=== PATIENT | female | born 2000 | race Caucasian/White ===

== ENCOUNTER 2019-02-18 10:25 | Outpatient (CLI) | payer MEDICAID | END 2019-02-18 13:05 | disposition home or self-care (01) | LOC: OBT 10:25 → L-D 10:26 → OBT 13:05 | DX: O26.893 Other specified pregnancy related conditions, third trimester (principal); L29.9 Pruritus, unspecified; Z3A.36 36 weeks gestation of pregnancy | CPT/HCPCS: 76818 ==

== ENCOUNTER 2019-02-22 17:50 | Inpatient (IN) | payer MEDICAID ==
[2019-02-22 19:24] LABS: ADD MAN DIFF? NO
[2019-02-22 19:27] LABS: BASOPHILS % 0.2 % (0.0-2.0); EOSINOPHILS % 0.4 % (0.0-7.0); HEMATOCRIT 34.3 % (37.0-47.0); HEMOGLOBIN 11.6 g/dl (12.0-16.0); LYMPHOCYTES # 2.2 10^3/ul (0.8-2.9); LYMPHOCYTES % 19.7 % (18.0-55.0); MEAN CORPUSCULAR HEMOGLOBIN 29.8 pg (29.0-33.0); MEAN CORPUSCULAR HGB CONC 33.8 g/dl (32.0-37.0); MEAN CORPUSCULAR VOLUME 88.2 fl (72.0-104.0); MEAN PLATELET VOLUME 11.3 fl (7.4-10.4); MONOCYTE # 0.5 10^3/ul (0.3-0.9); MONOCYTES % 4.6 % (0.0-13.0); NEUTROPHIL # 8.1 10^3/ul (1.6-7.5); NEUTROPHILS % 74.2 % (30.0-74.0); PLATELET COUNT 189 10^3/UL (140-415); RED BLOOD COUNT 3.89 10^6/ul (4.20-5.40)
[2019-02-22 19:27] LABS: WHITE BLOOD COUNT 10.9 10^3/ul (4.8-10.8)
[2019-02-22 19:35] LABS: ADD UMIC YES; UR ASCORBIC ACID NEGATIVE (NEGATIVE); UR BACTERIA FEW /HPF (NONE SEEN); UR BILIRUBIN (Dip) NEGATIVE (NEGATIVE); UR BLOOD (Dip) NEGATIVE (NEGATIVE); UR CLARITY SLIGHTLY CLOUDY (CLEAR); UR COLOR YELLOW (YELLOW); UR GLUCOSE (Dip) NEGATIVE (NEGATIVE); UR KETONES (Dip) NEGATIVE (NEGATIVE); UR LEUKOCYTE ESTERASE (Dip) 1+ Leu/ul (NEGATIVE); UR MUCUS FEW /HPF (NONE SEEN); UR NITRITE (Dip) POSITIVE (NEGATIVE); UR RBC 0 /HPF (0-5); UR SPECIFIC GRAVITY (Dip) 1.027 (1.003-1.030); UR SQUAMOUS EPITHELIAL CELL MODERATE /HPF (FEW); UR TOTAL PROTEIN (Dip) NEGATIVE (NEGATIVE); UR UROBILINOGEN (Dip) 1+ mg/dL (NEGATIVE); UR WBC 47 /HPF (0-5)
[2019-02-22 19:45] LABS: ALANINE AMINOTRANSFERASE 22 IU/L (13-69); ALBUMIN 3.4 g/dl (3.3-4.9); ALBUMIN/GLOBULIN RATIO 1.17; ALKALINE PHOSPHATASE 210 IU/L (42-121); ANION GAP 8 (5-13); ASPARTATE AMINO TRANSFERASE 31 IU/L (15-46); BILIRUBIN,INDIRECT 0.4 mg/dl (0-1.1); BILIRUBIN,TOTAL 0.4 mg/dl (0.2-1.3); BLOOD UREA NITROGEN 12 mg/dl (7-20); CALCIUM 8.8 mg/dl (8.4-10.2); CARBON DIOXIDE 19 mmol/L (21-31); CHLORIDE 110 mmol/L (97-110); CREATININE 0.57 mg/dl (0.44-1.00); Estimated GFR > 60 mL/min (>60); GLUCOSE 72 mg/dl (70-220); POTASSIUM 3.8 mmol/L (3.5-5.1); SODIUM 137 mmol/L (135-144); TOTAL PROTEIN 6.3 g/dl (6.1-8.1); URIC ACID 5.9 mg/dl (3.1-7.9)
[2019-02-22 19:47] LABS: INR 0.95; PROTIME 12.8 Sec (11.9-14.9)
[2019-02-22 19:48] LABS: PARTIAL THROMBOPLASTIN TIME 27.7 Sec (23.0-35.0)
[2019-02-23] MEDS: URSODIOL 300 MG CAP PO ×4 (00:12→20:31)
[2019-02-23] MEDS: DIPHENHYDRAMINE 25 MG CAP PO ×2 (00:12→20:31)
[2019-02-23 23:39] LABS: COLLECTION PERIOD 24 hrs
[2019-02-24 00:12] LABS: VOLUME 1200 mls
[2019-02-24 00:13] LABS: COLLECTION PERIOD 24 hrs; CREATININE CLEARANCE 154.8 mls/min (84.0-162.0); CREATININE,URINE RANDOM 105.86 mg/dl (20-320); SCRET 0.57 mg/dl (0.44-1.00); VOLUME 1200 ml/24hrs
[2019-02-24 01:08] LABS: CREATININE 0.62 mg/dl (0.44-1.00)
[2019-02-24] MEDS ORDERED: MISOPROSTOL 200 MCG TAB PR (02:00)
[2019-02-24] MEDS ORDERED: METHYLERGONOVINE 0.2 MG INJ IM (02:00)
[2019-02-24] MEDS ORDERED: CARBOPROST 250 MCG INJ IM (02:00)
[2019-02-24] MEDS ORDERED: IBUPROFEN 600 MG TAB PO (02:00)
[2019-02-24] MEDS ORDERED: OXYTOCIN 30 UNITS/LR 500 ML IV (02:00)
[2019-02-24] MEDS: LACTATED RINGER'S 1,000 ML IV ×3 (02:33→17:28)
[2019-02-24] MEDS: DIPHENHYDRAMINE 50 MG INJ IV (02:34)
[2019-02-24] MEDS: MISOPROSTOL 50 MCG CAPSULE PO ×4 (02:51→20:54)
[2019-02-24 04:09] LABS: ADD MAN DIFF? NO
[2019-02-24 04:11] LABS: WHITE BLOOD COUNT 8.8 10^3/ul (4.8-10.8)
[2019-02-24 04:11] LABS: BASOPHILS % 0.2 % (0.0-2.0); EOSINOPHILS # 0.1 10^3/ul (0.0-0.5); EOSINOPHILS % 0.7 % (0.0-7.0); HEMATOCRIT 32.7 % (37.0-47.0); HEMOGLOBIN 11.1 g/dl (12.0-16.0); LYMPHOCYTES # 2.6 10^3/ul (0.8-2.9); LYMPHOCYTES % 28.8 % (18.0-55.0); MEAN CORPUSCULAR HEMOGLOBIN 29.8 pg (29.0-33.0); MEAN CORPUSCULAR HGB CONC 33.9 g/dl (32.0-37.0); MEAN CORPUSCULAR VOLUME 87.9 fl (72.0-104.0); MEAN PLATELET VOLUME 11.6 fl (7.4-10.4); MONOCYTE # 0.6 10^3/ul (0.3-0.9); NEUTROPHIL # 5.5 10^3/ul (1.6-7.5); NEUTROPHILS % 62.3 % (30.0-74.0); PLATELET COUNT 182 10^3/UL (140-415); RED BLOOD COUNT 3.72 10^6/ul (4.20-5.40); RED CELL DISTRIBUTION WIDTH 13.1 % (11.5-14.5)
[2019-02-24 04:30] LABS: INR 0.95; PROTIME 12.8 Sec (11.9-14.9)
[2019-02-24 04:31] LABS: PARTIAL THROMBOPLASTIN TIME 27.7 Sec (23.0-35.0)
[2019-02-24] MEDS ORDERED: MISOPROSTOL 50 MCG CAPSULE PO (05:00)
[2019-02-24 05:07] LABS: HEPATITIS B SURFACE ANTIGEN NEGATIVE (NEGATIVE)
[2019-02-24] MEDS: AMPICILLIN 2 GM/NS (PMX) 100 ML IV (08:38)
[2019-02-24] MEDS ORDERED: HYDROCORTISONE 20 MG TAB PO (09:00)
[2019-02-24] MEDS: URSODIOL 300 MG CAP PO ×3 (10:59→20:54)
[2019-02-24] MEDS: AMPICILLIN 1 GM/NS (PMX) 50 ML IV ×3 (13:26→21:30)
[2019-02-24] MEDS: hydrOXYzine HCL 10 MG TAB PO ×3 (13:26→21:00)
[2019-02-24 15:44] LABS: RAPID PLASMA REAGIN NONREACTIVE (NR)
[2019-02-24 18:58] LABS: BARBITURATES NEGATIVE (NEGATIVE); BENZODIAZEPINES NEGATIVE (NEGATIVE); CANNABINOIDS NEGATIVE (NEGATIVE); COCAINE NEGATIVE (NEGATIVE); OPIATES NEGATIVE (NEGATIVE)
[2019-02-24 19:27] LABS: AMPHETAMINE/METHAMPHETAMINE Negative (NEGATIVE)
[2019-02-24] MEDS: DIPHENHYDRAMINE 25 MG CAP PO (20:54)
[2019-02-24] MEDS ORDERED: MINERAL OIL LIGHT 10 ML VIAL TOP (23:00)
[2019-02-25] MEDS: MISOPROSTOL 50 MCG CAPSULE PO ×2 (01:34→05:44)
[2019-02-25] MEDS: AMPICILLIN 1 GM/NS (PMX) 50 ML IV ×6 (01:34→20:54)
[2019-02-25] MEDS: LACTATED RINGER'S 1,000 ML IV ×4 (01:36→23:54)
[2019-02-25] MEDS: hydrOXYzine HCL 10 MG TAB PO ×3 (09:06→20:46)
[2019-02-25] MEDS: URSODIOL 300 MG CAP PO ×3 (09:06→20:46)
[2019-02-25] MEDS: OXYTOCIN 30 UNITS/LR 500 ML IV (10:45)
[2019-02-25] MEDS: BUTORPHANOL 2 MG INJ IV (20:48)
[2019-02-25] MEDS: DIPHENHYDRAMINE 25 MG CAP PO (21:00)
[2019-02-26] MEDS ORDERED: FENTAnyl 2MCG/ML-ROPIV 0.2% 100 ML (00:09)
[2019-02-26] MEDS ORDERED: ONDANSETRON 4 MG INJ IV (00:30)
[2019-02-26] MEDS ORDERED: NALOXONE (0.4 MG/ML) INJ IV (00:30)
[2019-02-26] MEDS ORDERED: DIPHENHYDRAMINE 50 MG INJ IV (00:30)
[2019-02-26] MEDS ORDERED: FENTAnyl 2MCG/ML-ROPIV 0.2% 100 ML BAG EPI (00:30)
[2019-02-26] MEDS: AMPICILLIN 1 GM/NS (PMX) 50 ML IV ×2 (01:16→06:02)
[2019-02-26] MEDS: OXYTOCIN 30 UNITS/LR 500 ML IV ×3 (09:25→13:22)
[2019-02-26] MEDS: MINERAL OIL LIGHT 10 ML VIAL TOP (09:27)
[2019-02-26] MEDS: LIDOCAINE 1% (MPF) 30 ML INJ INJ (09:27)
[2019-02-26] MEDS ORDERED: METHYLERGONOVINE 0.2 MG INJ IM (12:00)
[2019-02-26] MEDS ORDERED: OXYTOCIN 30 UNITS/LR 500 ML IV (12:00)
[2019-02-26] MEDS ORDERED: NACL 0.9% 3 ML SYG IV (12:00)
[2019-02-26] MEDS ORDERED: HYDROCODONE/APAP (5/325) TAB PO ×2 (12:00)
[2019-02-26] MEDS ORDERED: MISOPROSTOL 200 MCG TAB PR (12:00)
[2019-02-26] MEDS ORDERED: CARBOPROST 250 MCG INJ IM (12:00)
[2019-02-26] MEDS ORDERED: METHYLERGONOVINE 0.2 MG TAB PO (12:00)
[2019-02-26] MEDS: BENZOCAINE 20% 56 ML SPRAY TOP (13:24)
[2019-02-26] MEDS: IBUPROFEN 600 MG TAB PO ×2 (13:24→18:11)
[2019-02-26] MEDS: WITCH HAZEL/GLYCERIN PAD PR (13:25)
[2019-02-26] MEDS: DIBUCAINE 1% 30 GM OINT TOP (13:25)
[2019-02-26] MEDS: LANOLIN HPA 1 PKT TOP (13:26)
[2019-02-27] MEDS: IBUPROFEN 600 MG TAB PO ×5 (00:01→23:45)
[2019-02-27 07:46] LABS: ADD MAN DIFF? NO
[2019-02-27 07:51] LABS: WHITE BLOOD COUNT 14.2 10^3/ul (4.8-10.8)
[2019-02-27 07:51] LABS: BASOPHILS % 0.1 % (0.0-2.0); EOSINOPHILS # 0.1 10^3/ul (0.0-0.5); EOSINOPHILS % 0.4 % (0.0-7.0); LYMPHOCYTES # 2.8 10^3/ul (0.8-2.9); LYMPHOCYTES % 19.4 % (18.0-55.0); MEAN CORPUSCULAR HEMOGLOBIN 29.5 pg (29.0-33.0); MEAN CORPUSCULAR HGB CONC 33.3 g/dl (32.0-37.0); MEAN CORPUSCULAR VOLUME 88.5 fl (72.0-104.0); MEAN PLATELET VOLUME 11.9 fl (7.4-10.4); MONOCYTE # 0.7 10^3/ul (0.3-0.9); NEUTROPHIL # 10.5 10^3/ul (1.6-7.5); NEUTROPHILS % 74.2 % (30.0-74.0); PLATELET COUNT 122 10^3/UL (140-415); RED BLOOD COUNT 3.05 10^6/ul (4.20-5.40); RED CELL DISTRIBUTION WIDTH 13.2 % (11.5-14.5)
[2019-02-28] MEDS: IBUPROFEN 600 MG TAB PO ×2 (05:36→12:00)
[2019-02-28] MEDS: DIPHTH/TET/ACEL PERTUSS (ADULT) 0.5 ML VIAL IM* (09:00)
[2019-02-28] MEDS: MEASLES,MUMPS,RUBELLA VACCINE INJ SC* (10:56)
== END 2019-02-28 12:55 | disposition home or self-care (01) | DRG 807 ==
LOC: OBT 17:50 → PP1 02-26 12:25 → L-D 17:52 → OBT 18:40 → L-D 02-24 16:11 → PP1 02-26 12:30 → L-D 18:40
PROC: 4A1HXCZ Monitoring of Products of Conception, Cardiac Rate, External Approach (ICD-10-PCS; 2019-02-22)
PROC: 10E0XZZ Delivery of Products of Conception, External Approach (ICD-10-PCS; principal; 2019-02-26)
PROC: 0HQ9XZZ Repair Perineum Skin, External Approach (ICD-10-PCS; 2019-02-26)
PROC: 3E0234Z Introduction of Serum, Toxoid and Vaccine into Muscle, Percutaneous Approach (ICD-10-PCS; 2019-02-28)
DX: O99.824 Streptococcus B carrier state complicating childbirth (principal); Z37.0 Single live birth; O70.0 First degree perineal laceration during delivery; Z3A.37 37 weeks gestation of pregnancy; Z23 Encounter for immunization
CPT/HCPCS: 62322; 76818; 80053; 80307; 81001; 82565; 82575; 84156; 84560; 85025; 85384; 85610; 85730; 86592; 86850; 86900; 86901; 87340; 99464